=== PATIENT | female | born 1990 | race Caucasian/White ===

== ENCOUNTER 2018-03-13 12:03 | Emergency (ER) | payer MEDICAID ==
--- NOTE | 2018-03-13 13:01 | EDPHY ---
H & P Time Seen by Provider: 03/13/18 12:29 HPI/ROS: CLINICAL IMPRESSION: Acute sinusitis and bronchitis ASSESSMENT/PLAN: 28-year-old female presents to the emergency department with 3 weeks of congestion, purulent nasal discharge, productive cough, and intermittent fevers. No underlying cardiopulmonary disease. No hypoxia, vital signs stable. Purulent discharge noted in posterior pharyngeal wall and Patient has crackles and wheezing most notably to right upper lobe. She has refused chest x -ray and albuterol neb. She is a smoker. Antibiotics and albuterol inhaler with spacer prescribed. Encouraged PCP recheck in 24-48 hours. Warning signs return to ED sooner outlined in discharge. DIFFERENTIAL DX: Differential includes but not limited to Viral bronchitis, viral rhinitis, acute sinusitis, pneumonia CHIEF COMPLAINT: Cough and sinus congestion x3 weeks HPI: 28-year-old otherwise healthy female presents to the emergency department with 3 weeks of nasal congestion, purulent nasal discharge, facial discomfort, and productive cough. Patient states she is having difficulty sleeping at night due to the cough. She reports intermittent subjective fevers. No underlying asthma or history of pulmonary disease. She has not taken anything for her symptoms. No history of chronic sinusitis or prior sinus surgery PMH: No significant history mention Pertinent Past Surgical History: Noncontributory Family History: Noncontributory Social History: Smoker ROS: A full 10 point review of systems was negative except for those mentioned in HPI. PHYSICAL EXAM: General Appearance: Alert, oriented, appropriate, cooperative, NAD, well hydrated, non-toxic appearing, VSS, no hypoxia. HEENT: TMs are clear bilaterally no perforation or FB, no injection, no evidence of serous or mucopurulent otitis. Oropharynx clear is no erythema or exudates, no tonsillar hypertrophy or asymmetry. Dentition without abnormality. Eyes: PERRLA, no acute vision change, nystagmus, swelling, discharge, pain or photosensitivity. Conjunctiva pink, no pallor or injection Neck: Supple, nontender, no lymphadenopathy, no midline pain, FROM, no meningismus. Respiratory: Crackles and wheezing noted to right upper lobe Cardiac: Regular rate and rhythm, no murmurs or gallops. Skin: Warm, dry, no rashes, no nodules on palpation. MDM: Patient was seen independently by established practice protocols. Secondary supervising physician at time of evaluation was Dr. Worrell. Diagnosis: Acute sinusitis and bronchitis. New, requires workup Summary: See Assessment and Plan for summary of ED visit Clinical lab tests: Not obtained. Independent visualization of images, tracing, or specimens: Patient refused. Risk of comlications, morbidity, mortality: Presenting problem low Diagnostic procedures low Management Options low Patient Progress: Stable . Smoking Status: Heavy smoker Constitutional: Initial Vital Signs Temperature (C) 36.9 C 03/13/18 12:03 Heart Rate 101 H 03/13/18 12:03 Respiratory Rate 16 03/13/18 12:03 Blood Pressure 126/82 H 03/13/18 12:03 O2 Sat (%) 95 03/13/18 12:03 O2 Delivery Mode Room Air Allergies/Adverse Reactions: steroids Allergy (Uncoded 03/13/18 12:08) Home Medications: Medication Instructions Recorded Albuterol Hfa Anes Only [Proair 2 puffs IH QID #1 mdi 03/13/18 Hfa Icu (*)] Amoxicillin/Clavulanate Pot 875 mg PO BID #14 tab 03/13/18 [Augmentin 875 MG TAB (*)] MDM/Departure - Depart Disposition: Home, Routine, Self-Care Clinical Impression: Sinusitis, acute, Acute bronchitis Condition: Good Instructions: Sinusitis (ED) Additional Instructions: DISCHARGE INSTRUCTIONS FROM YOUR DOCTOR Thank you for visiting our emergency department today. Please keep in mind that discharge from the emergency department does not mean that there is nothing wrong - it simply means that we have not identified an emergency condition that requires further evaluation or treatment in the hospital. You should always plan to follow up with primary care for re-evaluation of your condition in the next 2-3 days. If you have been referred to a specialist, please call as soon as possible (today or tomorrow) to schedule your follow up appointment at the appropriate time. [ And antibiotic was given for sinusitis. An inhaler was given 4 year cough, please use this with a spacer. Please take as directed. Please follow up with a primary care doctor, if you do not have 1 a referral was given. Return to the emergency department for worsening symptoms, shortness of breath, fevers greater than 100.4, worsening cough or any other concerns.] People present with illnesses and injuries in different ways, and it is always possible that we have missed something. You may always return for re-evaluation if symptoms worsen or if they are not improving or if you develop new/different symptoms. Again, thank you for choosing our emergency department. We hope that you feel better. Stand Alone Forms: Work Excuse Prescriptions: Albuterol Hfa Anes Only [Proair Hfa Icu (*)] 2 puffs IH QID #1 mdi Amoxicillin/Clavulanate Pot [Augmentin 875 MG TAB (*)] 875 mg PO BID #14 tab Referrals: SHALONDA SMALLS [Other] - As per Instructions Elsi Abbott MD [Medical Doctor] - As per Instructions
[2018-03-13 13:06] VITALS: BP 104/75
== END 2018-03-13 13:16 | disposition home or self-care (01) ==
DX: J01.90 Acute sinusitis, unspecified (principal); J20.9 Acute bronchitis, unspecified

== ENCOUNTER 2018-03-16 17:17 | Emergency (ER) | payer MEDICAID ==
[2018-03-16] MEDS ORDERED: IPRATROPIUM/ALBUTEROL 3 ML DEYVIAL IH ONE ×2 (18:01→18:51)
--- NOTE | 2018-03-16 18:04 | EDPHY ---
H & P Time Seen by Provider: 03/16/18 17:51 HPI/ROS: CHIEF COMPLAINT: Chest pain and shortness of breath he HISTORY OF PRESENT ILLNESS: Patient is 28-year-old female here for with no significant past medical history was seen here 2 days ago and diagnosis sinusitis. She states that for the last couple of weeks she has had facial pain , runny nose and the dry cough that has turned productive. She was prescribed Augmentin for sinusitis and inhaler for her cough. She states she has had minimal improvement in her sinus pain and her cough. She denies any fever. She denies history of asthma, DVT, hemoptysis, leg swelling, recent travel, recent surgery. ROS As detailed in HPI Smoking Status: Heavy smoker Physical Exam: General: Alert and oriented. Nontoxic appearing. No acute distress HEENT: Pupils PERRLA. No oral lesions. Cardiopulmonary: Regular rate and rhythm. No lower extremity edema Skin: [place] warm and dry. No lesions. Muscle skeletal: Moving all 4 extremities. Equal strength in upper extremities and lower extremities. Ambulatory. Constitutional: Initial Vital Signs Temperature (C) 36.6 C 03/16/18 17:19 Heart Rate 125 H 03/16/18 17:19 Respiratory Rate 18 03/16/18 17:19 Blood Pressure 111/80 03/16/18 17:19 O2 Sat (%) 95 03/16/18 17:19 O2 Delivery Mode Room Air Allergies/Adverse Reactions: steroids Allergy (Uncoded 03/13/18 12:08) Home Medications: Medication Instructions Recorded Albuterol Hfa Anes Only [Proair 2 puffs IH QID #1 mdi 03/13/18 Hfa Icu (*)] Amoxicillin/Clavulanate Pot 875 mg PO BID #14 tab 03/13/18 [Augmentin 875 MG TAB (*)] Acetaminophen with Codeine 1 each PO Q6 PRN #8 tab 03/16/18 [Tylenol #3] predniSONE 60 mg PO DAILY #12 tab 03/16/18 Medical Decision Making - Diagnostics Imaging Results: Imaging Impressions Chest X-Ray 03/16/18 18:00 Impression: Findings most consistent with airways disease are noted. ED Course/Re-evaluation: Patient's history, physical and chest x-ray are most consistent with viral upper respiratory infection causing asthma exacerbation. She did improve significantly with 2 DuoNeb treatment she did have slight wheezing still at time of discharge. She was not hypoxic with there was no increased work breathing. The she was tachycardic and complained of pleuritic pain and extremely low suspicion for pulmonary embolism as she has no clinical signs of DVT and no risk factors for pulmonary embolism and has history consistent with viral upper respiratory infection. She was started on prednisone 60 mg emergency room will continue on oral steroids for the next few days she was referred to outpatient follow-up. Differential Diagnosis: Pulmonary embolism, pneumonia, respiratory failure, strep pharyngitis - Data Points Medications Given: Discontinued Medications Albuterol/Ipratropium (Duoneb) 3 ml IH EDNOW ONE Stop: 03/16/18 18:02 Last Admin: 03/16/18 18:16 Dose: 3 ml Albuterol/Ipratropium (Duoneb) 3 ml IH EDNOW ONE Stop: 03/16/18 18:52 Last Admin: 03/16/18 18:58 Dose: 3 ml Prednisone (Prednisone) 60 mg PO ONCE ONE Stop: 03/16/18 18:52 Last Admin: 03/16/18 18:58 Dose: 60 mg Departure - Departure Disposition: Home, Routine, Self-Care Clinical Impression: Asthma, Viral URI with cough Condition: Good Instructions: Asthma (ED) Additional Instructions: Please take prednisone daily as instructed. Do 2 puffs of albuterol every 4 hr for the next 2 days and then 2 puffs every 4-6 hours as needed thereafter. He finished a course of Augmentin as previously prescribed. Tomorrow please call either [facility] or the other provider that of given the number of this evening. Make an appointment to be seen Tuesday or Tuesday next week. Return to the ER this weekend feet of worsening shortness of breath or other worrisome symptoms. Referrals: SHALONDA WILKS [Other] - As per Instructions Christian Bernard DO [Doctor of Osteopathy] - As per Instructions [facility],. [Clinic] - As per Instructions Stand Alone Forms: Work Excuse Prescriptions: Acetaminophen with Codeine [Tylenol #3] 1 each PO Q6 PRN #8 tab PRN Reason: Cough, Mild predniSONE 60 mg PO DAILY #12 tab
[2018-03-16] MEDS ORDERED: predniSONE 20 MG TAB PO ONE (18:51)
[2018-03-16 19:44] VITALS: BP 114/63
== END 2018-03-16 19:44 | disposition home or self-care (01) ==
DX: J06.9 Acute upper respiratory infection, unspecified (principal); J45.901 Unspecified asthma with (acute) exacerbation; F17.200 Nicotine dependence, unspecified, uncomplicated
CPT/HCPCS: J7512

== ENCOUNTER → 2018-08-24 | Outpatient (CLI) | payer MEDICAID | LOC: FIMAGING 11:58 | PROVIDERS: ATTEND Obstetrics & Gynecology | DX: O36.5920 Maternal care for other known or suspected poor fetal growth, second trimester, not applicable or unspecified (principal); O99.332 Smoking (tobacco) complicating pregnancy, second trimester; Z3A.26 26 weeks gestation of pregnancy ==

== ENCOUNTER → 2018-09-14 | Outpatient (CLI) | payer MEDICAID | LOC: FIMAGING 15:00 | PROVIDERS: ATTEND Obstetrics & Gynecology | DX: Z36.4 Encounter for antenatal screening for fetal growth retardation (principal); Z3A.29 29 weeks gestation of pregnancy; O36.5930 Maternal care for other known or suspected poor fetal growth, third trimester, not applicable or unspecified; O99.333 Smoking (tobacco) complicating pregnancy, third trimester | CPT/HCPCS: 86644-90; 86645-90; 86777-90; 86778-90 ==

== ENCOUNTER → 2018-10-03 | Outpatient (CLI) | payer MEDICAID | LOC: FIMAGING 09:55 ==

== ENCOUNTER → 2018-10-12 | Outpatient (CLI) | payer MEDICAID | LOC: FIMAGING 14:29 ==